=== PATIENT | male | born 1975 | race African-American/Black ===

== ENCOUNTER 2016-12-08 02:21 | Emergency (ER) | payer OTHER ==
[~2016-12-08] VITALS: Ht 180.3 cm; Wt 101.2 kg
[~2016-12-08 02:21] MED LIST: AMARYL2 MG PO; AMLODIPINE BESY10 MG; AMLODIPINE BESY10 MG PO; ANTIVERT25 MG PO; AUGMENTIN875 MG PO; AURALGAN14.8 ML RIGHT EAR; CEFDINIR300 MG PO; CORTISPORIN-TC10 M1 BOTH EARS; ENALAPRIL MALEA20 MG; GLIMEPIRIDE1 MG; HYDROCHLOROTHIA25 MG PO; JANUVIA100 MG; JANUVIA100 MG PO; LANTUS 3 M100 UNITS1 SC; METFORMIN HCL1000 MG; METFORMIN HCL1000 MG PO; METOPROLOL SUCC50 MG; METOPROLOL SUCC50 MG PO; NAPROSYN500 MG PO; NATEGLINIDE120 MG PO; REPAGLINIDE1 MG PO; SIMVASTATIN20 MG; SIMVASTATIN20 MG PO; STARLIX120 MG PO; VASOTEC20 MG PO
[2016-12-08 02:22] VITALS: BP 128/84
[2016-12-08] MEDS ORDERED: NEURONTIN300 MG PO (03:05)
[2016-12-08] MEDS ORDERED: PERCOCET 5/31 TABLET PO (03:05)
== END 2016-12-08 03:23 | disposition home or self-care (01) ==
LOC: EME 02:21
DX: G56.03 Carpal tunnel syndrome, bilateral upper limbs (principal); E11.9 Type 2 diabetes mellitus without complications; Z88.0 Allergy status to penicillin
CPT/HCPCS: 99281; 99283